=== PATIENT | male | born 1995 | race Caucasian/White ===

== ENCOUNTER 2023-01-01 12:49 | Outpatient (CLI) | payer OTHER ==
--- NOTE | 2023-01-02 03:05 | XRAY Report ---
PROCEDURE: Wrist 2 View LT INDICATIONS: PAIN IN LEFT WRIST TECHNIQUE: 2 views of the wrist were acquired. COMPARISON: None. FINDINGS: Bones: No definite fractures or dislocations. No suspicious bony lesions. Soft tissues: No suspicious soft tissue calcifications or masses. IMPRESSION: 1. No definite fracture or dislocation. Reviewed by: Gerard Jimenez MD on 01/02/2023 3:04 AM PDT Approved by: Gerard Jimenez MD on 01/02/2023 3:04 AM PDT Station ID: [id number]
--- NOTE | 2023-01-02 03:06 | XRAY Report ---
PROCEDURE: Tib/Fib LT INDICATIONS: PAIN IN LEFT LOWER LEG TECHNIQUE: 2 views of the tibia and fibula were acquired. COMPARISON: None. FINDINGS: Bones: No fractures or dislocations. No suspicious bony lesions. Soft tissues: No suspicious soft tissue calcifications or masses. IMPRESSION: 1. No fracture or dislocation. Reviewed by: Gerard Jimenez MD on 01/02/2023 3:04 AM PDT Approved by: Gerard Jimenez MD on 01/02/2023 3:04 AM PDT Station ID: [id number]
== END 2023-01-01 23:59 | disposition home or self-care (01) ==
LOC: DI.N 12:49
PROVIDERS: ATTEND Nurse Practitioner
DX: M25.532 Pain in left wrist (principal); M79.662 Pain in left lower leg